=== PATIENT | female | born 1960 | race Caucasian/White ===

== ENCOUNTER 2024-10-26 19:25 | Inpatient (IN) | payer MEDICARE ==
[~2024-10-26] VITALS: Ht 160 cm; Wt 45.4 kg
[2024-10-26] MEDS ORDERED: ROSU5TAB PO (19:48)
[2024-10-26] MEDS ORDERED: METO25TA6 PO (19:48)
[2024-10-26] MEDS ORDERED: APIX5TAB PO (19:48)
[2024-10-26 21:47] LABS: *BILIRUBIN,URIN 1+ (NEGATIVE); *BLOOD, URINE NEGATIVE (NEGATIVE); *CLARITY,URINE CLEAR (CLEAR); *COLOR,URINE DARK YELLOW (YELLOW); *KETONES,URINE 2+ (NEGATIVE); *PROTEIN,URINE TRACE (NEGATIVE); *UROBILINOGEN,URINE 0.2 E.U./dl (NORMAL); LEUKOCYTE ESTERASE ,URINE NEGATIVE (NEGATIVE); NITRITE, URINE NEGATIVE (NEGATIVE); PH,URINE 5.5 (5.0-8.0); UGLUCOSE NEGATIVE (NEGATIVE)
[2024-10-26 21:52] LABS: BACTERIA,URINE FEW /HPF (NONE SEEN); RBC,URINE 0-3 /HPF (0-3); SQUAMOUS EPITHELIAL CELL,UR FEW /HPF (NONE SEEN)
[2024-10-26 21:55] VITALS: BP 115/78; TEMP 98; O2SAT 100
[2024-10-26] MEDS ORDERED: TEMAZEPAM 7.5 MG CAPSULE PO PRN ×2 (22:00)
[2024-10-26] MEDS ORDERED: MAGNESIUM HYDROXIDE 30 ML LIQUID UDC PO PRN (22:00)
[2024-10-26] MEDS ORDERED: CLONAZEPAM 0.5 MG TABLET PO PRN ×2 (22:00)
[2024-10-26] MEDS ORDERED: ACETAMINOPHEN 325 MG TABLET PO PRN (22:00)
[2024-10-26] MEDS ORDERED: MAG HYDROX/AL HYDROX/SIMETH 30 ML LIQUID UDC PO PRN (22:00)
[2024-10-26 22:03] LABS: *AMPHETAMINE, URINE NEGATIVE (NEGATIVE); *BARBITURATE, URINE NEGATIVE (NEGATIVE); *BENZODIAZEPINE, URINE NEGATIVE (NEGATIVE); *CANNABINOID, URINE NEGATIVE (NEGATIVE); *COCCAINE, URINE NEGATIVE (NEGATIVE); *OPIATE, URINE NEGATIVE (NEGATIVE); *PHENCYCLIDINE SCREEN,URINE NEGATIVE (NEGATIVE); FENTANYL, URINE NEGATIVE (NEGATIVE)
[2024-10-26] MEDS: BLOOD SUGAR DIAGNOSTIC 1 EACH STRIP VI ONE (22:13)
[2024-10-27] MEDS ORDERED: CLONAZEPAM 0.5 MG TABLET PO PRN (06:00)
[2024-10-27] MEDS ORDERED: TEMAZEPAM 7.5 MG CAPSULE PO PRN (06:00)
[2024-10-27 08:04] VITALS: BP 120/77; TEMP 97.8; O2SAT 98
[2024-10-27] MEDS: ARIPIPRAZOLE 2 MG TABLET PO SCH (09:00)
[2024-10-27 16:00] VITALS: BP 127/81; TEMP 97.2; O2SAT 97
[2024-10-27] MEDS: APIXABAN 5 MG TABLET PO SCH (17:13)
[2024-10-27] MEDS: METOPROLOL TARTRATE 25 MG TABLET PO SCH (17:13)
[2024-10-27] MEDS: MIRTAZAPINE 15 MG TABLET PO SCH (21:00)
[2024-10-27] MEDS: ATORVASTATIN 10 MG TABLET PO SCH (21:05)
[2024-10-27 21:17] VITALS: BP 125/78; TEMP 98.3; O2SAT 100
[2024-10-28 08:14] VITALS: BP 110/85; TEMP 98.3; O2SAT 100
[2024-10-28] MEDS ORDERED: Medication Not On Formulary EA (Rosuvastatin Calcium (Crestor) 5 MG) PO SCH (09:00)
[2024-10-28] MEDS: ENSURE ENLIVE (VAN) 240 ML LIQUID PO SCH (09:03)
[2024-10-28 16:08] VITALS: BP 127/80; TEMP 98.1; O2SAT 100
[2024-10-28 19:50] VITALS: BP 120/77; TEMP 98.1; O2SAT 100
[2024-10-29 08:14] VITALS: BP 132/89; TEMP 98.1; O2SAT 100
[2024-10-29 16:45] VITALS: BP 123/81; TEMP 98.1; O2SAT 99
[2024-10-29 19:57] VITALS: BP 147/87; TEMP 98; O2SAT 100
[2024-10-30 08:10] VITALS: BP 121/81; TEMP 98.3; O2SAT 97
[2024-10-30] MEDS: ARIPIPRAZOLE 2 MG TABLET PO SCH (08:47)
[2024-10-30 16:51] VITALS: BP 125/73; TEMP 98; O2SAT 100
[2024-10-30 20:12] VITALS: BP 154/71; TEMP 98.4; O2SAT 100
[2024-10-31 08:12] VITALS: BP 108/80; TEMP 98; O2SAT 99
[2024-10-31 16:14] VITALS: BP 124/79; TEMP 98; O2SAT 97
[2024-11-01 08:14] VITALS: BP 111/69; TEMP 98; O2SAT 97
[2024-11-01 20:04] VITALS: BP 106/70; TEMP 98.1; O2SAT 99
[2024-11-01 22:22] VITALS: BP 116/78; TEMP 98.4; O2SAT 99
[2024-11-02 06:18] VITALS: BP 118/72; TEMP 97.5; O2SAT 99
[2024-11-02 08:07] VITALS: BP 114/72; TEMP 97.5; O2SAT 100
[2024-11-02 16:00] VITALS: BP 117/81; TEMP 97.2; O2SAT 100
[2024-11-03] MEDS ORDERED: MIRALAX 17 GM POWD.PACK PO PRN (11:15)
[2024-11-03 15:55] VITALS: BP 107/60; TEMP 97.6; O2SAT 100
[2024-11-03 20:00] VITALS: BP 124/75; TEMP 97.3; O2SAT 100
[2024-11-04 08:14] VITALS: BP 112/75; TEMP 97.5; O2SAT 100
[2024-11-04 16:22] VITALS: BP 120/86; TEMP 97.8; O2SAT 100
[2024-11-04 20:00] VITALS: BP 128/75; TEMP 97.5; O2SAT 100
[2024-11-05 07:59] VITALS: BP 120/82; TEMP 97.8; O2SAT 98
[2024-11-05 08:06] LABS: BASOPHILS # (AUTO) 0.1 K/UL (0.0-0.2); BASOPHILS % (AUTO) 1.5 % (0.0-2.0); EOSINOPHILS # (AUTO) 0.1 K/uL (0.0-0.7); EOSINOPHILS % (AUTO) 1.6 % (0.0-7.0); HEMATOCRIT 35.5 % (31.2-41.9); LYMPHOCYTES # (AUTO) 1.2 K/uL (0.8-4.8); LYMPHOCYTES % (AUTO) 21.7 % (20.5-51.5); MEAN CORPUSCULAR HEMOGLOBIN 31.2 uug (24.7-32.8); MEAN CORPUSCULAR HGB CONC 34 g/dL (32.3-35.6); MEAN CORPUSCULAR VOLUME 92.5 fL (75.5-95.3); MONOCYTES # (AUTO) 0.5 K/uL (0.1-1.30); MONOCYTES % (AUTO) 8.6 % (0.0-11.0); NEUTROPHILS # (AUTO) 3.8 K/uL (1.8-8.9); NEUTROPHILS % (AUTO) 66.6 % (38.5-71.5); PLATELET COUNT (AUTO) 245 K/uL (179-408); RED BLOOD CELL COUNT(AUTO) 3.84 MIL/uL (3.63-4.92); RED CELL DISTRIBUTION WIDTH 14.2 % (12.3-17.7); WHITE BLOOD COUNT (AUTO) 5.7 K/uL (3.8-11.8)
[2024-11-05 08:26] LABS: DIFFERENTIAL COMMENT 1
[2024-11-05 08:32] LABS: BILIRUBIN,TOTAL 0.7 mg/dL (0.2-1.0); CALCIUM 9.3 mg/dL (8.5-10.1); CREATININE 0.7 mg/dL (0.6-1.3); MAGNESIUM 2.1 mg/dL (1.8-2.4); PHOSPHOROUS 3.9 mg/dL (2.5-4.9); POTASSIUM 4.7 mmol/L (3.5-5.1)
[2024-11-05] MEDS ORDERED: METHOCARBAMOL 500 MG TABLET PO PRN (11:00)
[2024-11-05 15:46] VITALS: BP 108/69; TEMP 98; O2SAT 98
[2024-11-05 20:00] VITALS: BP 143/87; TEMP 97.5; O2SAT 100
[2024-11-06 08:16] VITALS: BP 120/74; TEMP 97.7; O2SAT 100
[2024-11-06 16:38] VITALS: BP 118/70; TEMP 97.6; O2SAT 100
[2024-11-06 20:20] VITALS: BP 129/77; TEMP 98.2; O2SAT 100
[2024-11-07 08:18] VITALS: BP 112/81; TEMP 97.7; O2SAT 99
[2024-11-07 08:21] VITALS: BP 129/77
== END 2024-11-07 15:45 | DRG 885 ==
LOC: ER 19:37 → GPS 21:45 → GPSOV3 11-01 21:35 → GPS 11-02 18:07
PROVIDERS: ADMIT Psychiatry & Neurology Psychiatry; ATTEND Student in an Organized Health Care Education/Training Program
DX: F32.3 Major depressive disorder, single episode, severe with psychotic features (principal); I48.91 Unspecified atrial fibrillation; Z95.2 Presence of prosthetic heart valve; Z79.01 Long term (current) use of anticoagulants; E78.5 Hyperlipidemia, unspecified; F41.9 Anxiety disorder, unspecified; G31.84 Mild cognitive impairment of uncertain or unknown etiology; I10 Essential (primary) hypertension; Z81.8 Family history of other mental and behavioral disorders; K59.00 Constipation, unspecified; Z79.899 Other long term (current) drug therapy
CPT/HCPCS: 36415; 83735; 84100; 84443; 85025